=== PATIENT | female | born 1995 | race Caucasian/White ===

== ENCOUNTER 2017-12-25 06:45 | Inpatient (IN) | payer BC, OTHER ==
[~2017-12-25] VITALS: Ht 160 cm; Wt 70.5 kg
[2017-12-30] VITALS (53 sets, daily range): BP systolic 101–136; BP diastolic 51–88; PULSE 16–100; TEMP 98–98.2
[2017-12-30 07:33] LABS: BASO # 0.1 (0.0-0.2); BASO % 0.6 % (0.0-2.0); EOS # 0.5 (0.0-0.7); EOS % 3.8 % (0-4.0); GRAN # 9.1 (1.4-6.5); GRAN % 69.8 % (42.2-75.2); HEMATOCRIT 32.9 % (37.0-47.0); HEMOGLOBIN 10.3 g/dl (12.5-16.0); LYMPH # 2.4 (1.2-3.4); LYMPH % 18.5 % (20.0-51.0); MEAN CELL VOLUME 83 fl (80.0-100.0); MEAN CORPUSCULAR HEMOGLOBIN 26 pg (27.0-31.0); MEAN CORPUSCULAR HGB CONC 31 g/dl (33.0-37.0); MEAN PLATELET VOLUME 11.1 fl (7.4-10.4); MONO # 0.8 (0.1-0.6); MONO % 6.3 % (1.7-9.3); PLATELET COUNT 239 K/mm3 (130-400); RED BLOOD COUNT 3.97 M/mm3 (4.10-5.30)
[2017-12-31 02:00] VITALS: BP 107/63; PULSE 79
[2017-12-31 05:00] VITALS: BP 129/70; PULSE 65
[2017-12-31 08:45] VITALS: BP 107/58; PULSE 81; TEMP 98.2
[2017-12-31] MEDS ORDERED: PERCOCET 325 MG1 TA2 PO (12:20)
[2017-12-31] MEDS ORDERED: MOTRIN 800800 MG/TAB PO (12:20)
[2017-12-31 16:15] VITALS: BP 118/65; PULSE 81; TEMP 98.3
[2017-12-31 21:00] VITALS: BP 118/77; PULSE 84; TEMP 98.1
[2018-01-01 07:55] VITALS: BP 121/81; PULSE 96; TEMP 97.9
== END 2018-01-01 11:55 | disposition home or self-care (01) | DRG 775 ==
LOC: OB 12-30 06:37 → LDR 12-30 06:37 → OB 12-30 21:00 → LDR 12-31 06:44 → OB 01-01 11:55
PROVIDERS: Obstetrics & Gynecology
PROC: 10E0XZZ Delivery of Products of Conception, External Approach (ICD-10-PCS; principal; 2017-12-30)
PROC: 0UQMXZZ Repair Vulva, External Approach (ICD-10-PCS; 2017-12-30)
DX: O69.81X0 Labor and delivery complicated by cord around neck, without compression, not applicable or unspecified (principal); O70.0 First degree perineal laceration during delivery; Z3A.39 39 weeks gestation of pregnancy; Z37.0 Single live birth
CPT/HCPCS: J2590; J2795; J7120

== ENCOUNTER 2017-12-28 11:17 | Outpatient (CLI) | payer BC, OTHER ==
[~2017-12-28] VITALS: Ht 160 cm; Wt 70.5 kg
[2017-12-28 11:35] VITALS: BP 120/73; PULSE 75; TEMP 98.4
[2017-12-28 11:39] VITALS: BP 120/73; PULSE 75; TEMP 98.4
[2017-12-28 12:45] VITALS: BP 124/80; PULSE 73
== END 2017-12-28 13:00 | disposition home or self-care (01) ==
LOC: LDRO 11:17 → LDR 11:25 → LDRO 13:00
DX: O62.9 Abnormality of forces of labor, unspecified (principal); Z3A.38 38 weeks gestation of pregnancy
CPT/HCPCS: OP

== ENCOUNTER 2018-01-03 16:57 | Emergency (ER) | payer BC, OTHER ==
[~2018-01-03] VITALS: Ht 160 cm; Wt 67.7 kg
[~2018-01-03 16:57] MED LIST: MOTRIN 800800 MG/TAB PO; PERCOCET 325 MG1 TA2 PO
[2018-01-03 17:04] VITALS: BP 129/86; TEMP 98.4
[2018-01-03 17:45] LABS: BASO # 0.1 (0.0-0.2); BASO % 0.5 % (0.0-2.0); EOS # 0.4 (0.0-0.7); EOS % 3.7 % (0-4.0); GRAN # 7.4 (1.4-6.5); GRAN % 70.1 % (42.2-75.2); HEMATOCRIT 30.1 % (37.0-47.0); HEMOGLOBIN 9.3 g/dl (12.5-16.0); LYMPH % 19.1 % (20.0-51.0); MEAN CELL VOLUME 83 fl (80.0-100.0); MEAN CORPUSCULAR HEMOGLOBIN 26 pg (27.0-31.0); MEAN CORPUSCULAR HGB CONC 31 g/dl (33.0-37.0); MEAN PLATELET VOLUME 9.7 fl (7.4-10.4); MONO # 0.6 (0.1-0.6); MONO % 5.5 % (1.7-9.3); PLATELET COUNT 292 K/mm3 (130-400); RED BLOOD COUNT 3.64 M/mm3 (4.10-5.30); REDCELL DISTRIBUTION WIDTH-CV 14.6 % (11.5-14.5)
[2018-01-03 17:50] LABS: ALBUMIN 3.3 gm/dL (3.5-5.0); BILIRUBIN,TOTAL 0.3 mg/dL (0.0-1.0); CALCIUM 8.7 mg/dL (8.4-10.2); CREATININE, serum 0.58 mg/dL (0.52-1.25); POTASSIUM 3.7 mmol/L (3.4-5.0); TOTAL PROTEIN 7.1 gm/dL (6.4-8.2)
[2018-01-03 18:25] LABS: COLLECTION METHOD CLEAN CATCH
[2018-01-03 18:33] LABS: MUCOUS Present /lpf; PH 7 (5-8); SQUAMOUS EPITHELIAL 0-2 /hpf; URINE APPEARANCE Clear; URINE BACTERIA None Seen /hpf; URINE BILIRUBIN Negative (NEGATIVE); URINE BLOOD 2+ (NEGATIVE); URINE COLOR Yellow; URINE GLUCOSE Negative (NEGATIVE); URINE KETONE Negative (NEGATIVE); URINE LEUKOCYTE ESTERASE Negative (NEGATIVE); URINE NITRATE Negative (NEGATIVE); URINE PROTEIN(semi-quant) Negative (NEGATIVE); URINE RBC None Seen /hpf; URINE UROBILINOGEN Negative (NEGATIVE)
[2018-01-03] MEDS ORDERED: FIORICET 325 MG1 TA1 PO (19:11)
[2018-01-03 19:31] VITALS: PULSE 80
== END 2018-01-03 19:31 | disposition home or self-care (01) ==
LOC: COL.ER 16:57
PROVIDERS: Emergency Medicine
DX: O90.89 Other complications of the puerperium, not elsewhere classified (principal); R51 Headache; R60.0 Localized edema
CPT/HCPCS: J1885; J7030